=== PATIENT | male | born 1980 | race Caucasian/White ===

== ENCOUNTER 2017-08-07 08:14 | Emergency (ER) | payer OTHER ==
[~2017-08-07] VITALS: Ht 175.3 cm; Wt 68.0 kg
[~2017-08-07 08:14] MED LIST: MEDICAL MARIJUANA; NAPR500 PO; OXYACE5T PO; RXERYTOPTH OP; RXTRAM50 PO; TRAM50 PO
== END 2017-08-07 09:14 | disposition home or self-care (01) ==
LOC: ER 08:14
DX: T16.1XXA Foreign body in right ear, initial encounter (principal); F17.200 Nicotine dependence, unspecified, uncomplicated
CPT/HCPCS: 69200; 99282

== ENCOUNTER → 2020-09-11 | Outpatient (CLI) | payer OTHER | END | disposition home or self-care (01) | LOC: LAB EV 11:09 → LAB SHORT 11:09 | DX: B02.9 Zoster without complications (principal) | CPT/HCPCS: 87070; 87205; 87252; 87254 ==